=== PATIENT | male | born 1965 | race Caucasian/White ===

== ENCOUNTER 2017-08-18 13:03 | Emergency (ER) | payer MEDICAID, MEDICARE, OTHER ==
[~2017-08-18] VITALS: Ht 180.3 cm; Wt 86.2 kg
[2017-08-18 13:16] VITALS: BP 100/62
[2017-08-18] MEDS ORDERED: BENADRYL25 MG ORAL (13:24)
[2017-08-18] MEDS ORDERED: BACTRIM DS TAB1 EAC1 ORAL (13:24)
[2017-08-18] MEDS ORDERED: CEPHALEXIN500 MG ORAL (13:24)
[2017-08-18 13:34] VITALS: BP 104/61
--- NOTE | 2017-08-18 22:12 | Emergency Room Report ---
History of Present Illness General Chief Complaint: General Complaint Source: Patient Present Illness HPI The patient is a 52-year-old male with a history of fibromyalgia presenting for possible infection of legs. He states that he has been scratching the outside of his legs for the past week and has removed the skin. He is now noticing redness around these areas. He denies any known reason for the itching. He denies any swelling to the area. He denies any injury. Denies pain at this time. He denies any fever or chills Allergies: Coded Allergies: No Known Allergies (Unverified , 08/18/17) Patient History Past Medical History: see triage record Pertinent Family History: none Reviewed Nursing Documentation: PMH: Agreed, PSxH: Agreed Nursing Documentation-PMH Past Medical History: No History, Except For Hx Pacemaker: No - FIBROMYAGIA Review of Systems All Other Systems: negative except mentioned in HPI Physical Exam Vital Signs Date Time Temp Pulse Resp B/P (MAP) Pulse Ox O2 Delivery O2 Flow Rate FiO2 08/18/17 13:10 97.9 85 20 100/62 96 Room Air Sp02 EP Interpretation: reviewed, normal General Appearance: no apparent distress, alert, GCS 15, non-toxic Head: normocephalic, atraumatic Eyes: bilateral eye normal inspection, bilateral eye PERRL Musculoskeletal: back normal, gait/station normal, normal range of motion, no calf tenderness Neurologic: alert, oriented x3, responsive, motor strength/tone normal, sensory intact, speech normal Psychiatric: judgement/insight normal, memory normal, mood/affect normal, no suicidal/homicidal ideation Skin: rash - bilat lateral ankles have abrasion with surrounding erythema Lymphatic: no adenopathy Medical Decision Making PA Attestation Dr. Roldan is my supervising physician. Patient management was discussed with my supervising physician Diagnostic Impression: Primary Impression: Cellulitis Qualified Codes: L03.119 - Cellulitis of unspecified part of limb ER Course The patient is a 52-year-old male with a history of fibromyalgia presenting for possible infection of legs Differential diagnoses considered but not limited to: Cellulitis, abscess, abrasion, among others Physical exam: Bilateral lower legs have abrasion to the lateral malleoli as well as surrounding erythema. There is tenderness to palpation. Skin is hot to the touch. No edema The areas are cleaned and new dressing is applied. Patient was told to stop itching. He is given prescription for Benadryl as well as Keflex and Bactrim. ER precautions given Last Vital Signs Date Time Temp Pulse Resp B/P (MAP) Pulse Ox O2 Delivery O2 Flow Rate FiO2 08/18/17 13:34 81 16 104/61 99 Room Air 08/18/17 13:16 97.9 Status: improved Disposition: HOME, SELF-CARE Condition: Improved Scripts Trimethoprim/Sulfamethoxazole 160/800* (BACTRIM DS TABLET*) 1 Each Tablet 1 TAB ORAL DAILY, #14 TAB Prov: KAITLYN RODRIGUEZ P.A. 08/18/17 Cephalexin* (KEFLEX*) 500 Mg Capsule 500 MG ORAL EVERY 12 HOURS, #14 CAP 0 Refills Prov: DUCANKAITLYN P.A. 08/18/17 Diphenhydramine Hcl* (BENADRYL*) 25 Mg Capsule 25 MG ORAL Q6H Y for Itching, #20 CAP Prov: KAITLYN RODRIGUEZ P.A. 08/18/17 Referrals: [facility],REFERRING (PCP) Patient Instructions: Cellulitis Additional Instructions: I discussed my findings with the patient. All questions and concerns have been answered. Treatment and medication compliance have been addressed. I advised the patient that they need to follow up with PMD in 3-5 days. Return to ED if symptoms worsen, new symptoms arise, or if needed for any reason. Patient verbalized understanding of discharge instructions. KAITLYN RODRIGUEZ Aug 18, 2017 22:12
== END 2017-08-18 13:34 | disposition home or self-care (01) ==
LOC: EMR 13:20
DX: L03.116 Cellulitis of left lower limb (principal); L03.115 Cellulitis of right lower limb; M79.7 Fibromyalgia
CPT/HCPCS: 99284

== ENCOUNTER 2019-03-13 17:13 | Inpatient (IN) | payer MEDICARE ==
[~2019-03-13] VITALS: Ht 182.9 cm; Wt 81.6 kg
[~2019-03-13 17:13] MED LIST: BACTRIM DS TAB1 EAC1 ORAL; BENADRYL25 MG ORAL; CEPHALEXIN500 MG ORAL
[2019-03-13 17:40] VITALS: BP 133/88
--- NOTE | 2019-03-13 17:43 | NUR ---
ED Nurse Note: Patient presents to ER due to right elbow swelling, pain, tenderness and redness x 3 days. Patient states he fell due to dizziness and started having symptoms. Patient also having non-healing wound over the RLE with redness, scabs. Open wound with redness on the left ankle, lateral side.
[2019-03-13] MEDS ORDERED: Vancomycin 1 GM in NS 275 ML IVPB ONE (18:00)
--- NOTE | 2019-03-13 18:00 | NUR ---
ED Nurse Note: x-ray at bedside.
--- NOTE | 2019-03-13 18:13 | Emergency Room Report ---
History of Present Illness General Chief Complaint: Multiple Trauma/Fall Source: Patient, Medical Record Present Illness HPI Patient presents emergency department today complaint right lower extremity pain and swelling and right elbow pain and swelling. Patient states that he is allergic to dust mites he is been scratching at his right lower extremity fairly aggressively as result this area appears to be infected. It appears to have crusting erythema and edema. In addition he states that he fell on his right elbow his right elbow appears erythematous swollen and warm. There is also an area of scab formation which is consistent with a nidus for infection. Patient denies any fever nausea vomiting diarrhea chills. No other complaints were noted. Symptoms noted to be moderate to severe. No other modifying factors. No other associated signs and symptoms. No other complaints were noted. Allergies: Coded Allergies: No Known Allergies (Unverified , 08/18/17) Patient History Past Medical History: psych hx - Depression anxiety Past Surgical History: none Social History: Denies: smoking, alcohol use, drug use Reviewed Nursing Documentation: PMH: Agreed; PSxH: Agreed Nursing Documentation-PMH Past Medical History: No History, Except For Hx Pacemaker: No - FIBROMYAGIA History Of Psychiatric Problem: Yes - depression, anxiety Review of Systems All Other Systems: negative except mentioned in HPI Physical Exam Vital Signs Date Time Temp Pulse Resp B/P (MAP) Pulse Ox O2 Delivery O2 Flow Rate FiO2 03/13/19 17:25 98.8 88 16 133/88 (103) 95 Room Air Sp02 EP Interpretation: reviewed, normal General Appearance: normal inspection, well appearing, no apparent distress, alert Head: atraumatic Eyes: bilateral eye normal inspection ENT: normal ENT inspection, hearing grossly normal, normal voice Neck: normal inspection, full range of motion, supple, no bony tend Respiratory: normal inspection, lungs clear, normal breath sounds, no respiratory distress, no retraction, no wheezing Cardiovascular #1: regular rate, rhythm, no edema Gastrointestinal: normal inspection, normal bowel sounds, non tender, soft, no guarding, no hernia Genitourinary: no CVA tenderness Musculoskeletal: back normal, normal range of motion, swelling - Right lower extremity erythema consistent with cellulitis, right elbow tender erythema consistent with cellulitis Neurologic: normal inspection, alert, responsive, speech normal Psychiatric: normal inspection, judgement/insight normal, mood/affect normal Medical Decision Making Diagnostic Impression: Primary Impression: Cellulitis ER Course Patient presents emergency department today complaining of right elbow pain redness swelling and right lower extremity pain and swelling. Differential diagnosis includes cellulitis, abscess, fracture just name a few. Given the severity of the patient's presentation I felt this is a highly complex patient. This patient required extensive workup. Patient laboratory work-up shows an elevated white blood cell count this is concerning as patient likely has cellulitis. Patient was started on vancomycin. X-rays of patient's right elbow did not show any evidence of fracture. Case was discussed with Dr. Valencia. Patient stable for transfer and will be transferred to [facility] for further management. Labs Test 03/13/19 18:00 White Blood Count 12.1 K/UL (4.8-10.8) Red Blood Count 4.36 M/UL (4.70-6.10) Hemoglobin 13.3 G/DL (14.2-18.0) Hematocrit 37.2 % (42.0-52.0) Mean Corpuscular Volume 85 FL (80-99) Mean Corpuscular Hemoglobin 30.4 PG (27.0-31.0) Mean Corpuscular Hemoglobin Concent 35.7 G/DL (32.0-36.0) Red Cell Distribution Width 10.5 % (11.6-14.8) Platelet Count 230 K/UL (150-450) Mean Platelet Volume 6.2 FL (6.5-10.1) Neutrophils (%) (Auto) 76.5 % (45.0-75.0) Lymphocytes (%) (Auto) 10.3 % (20.0-45.0) Monocytes (%) (Auto) 8.9 % (1.0-10.0) Eosinophils (%) (Auto) 2.8 % (0.0-3.0) Basophils (%) (Auto) 1.5 % (0.0-2.0) Sodium Level 138 MMOL/L (136-145) Potassium Level 3.9 MMOL/L (3.5-5.1) Chloride Level 104 MMOL/L (98-107) Carbon Dioxide Level 27 MMOL/L (21-32) Anion Gap 8 mmol/L (5-15) Blood Urea Nitrogen 17 mg/dL (7-18) Creatinine 1.0 MG/DL (0.55-1.30) Estimat Glomerular Filtration Rate > 60 mL/min (>60) Glucose Level 109 MG/DL (74-106) Calcium Level 8.7 MG/DL (8.5-10.1) Total Bilirubin 0.5 MG/DL (0.2-1.0) Aspartate Amino Transf (AST/SGOT) 14 U/L (15-37) Alanine Aminotransferase (ALT/SGPT) 13 U/L (12-78) Alkaline Phosphatase 77 U/L (46-116) Total Protein 6.8 G/DL (6.4-8.2) Albumin 3.3 G/DL (3.4-5.0) Globulin 3.5 g/dL Albumin/Globulin Ratio 0.9 (1.0-2.7) Other X-Ray Diagnostic Results Other X-Ray Diagnostic Results : X-Ray ordered: right elbow # of Views/Limited Vs Complete: 3 View Indication: Pain EP Interpretation: Yes Interpretation: no dislocation, no soft tissue swelling, no fractures Impression: No acute disease Electronically Signed by: Electronically signed by Mgiuel Cooper MD Last Vital Signs Date Time Temp Pulse Resp B/P (MAP) Pulse Ox O2 Delivery O2 Flow Rate FiO2 03/13/19 17:25 98.8 88 16 133/88 (103) 95 Room Air Status: improved Disposition: XFER SHT-TRM HOSP Condition: Serious Miguel Cooper MD Mar 13, 2019 18:13
[2019-03-13 18:31] LABS: BASOPHILS % (AUTO) 1.5 % (0.0-2.0); EOSINOPHILS % (AUTO) 2.8 % (0.0-3.0); HEMATOCRIT 37.2 % (42.0-52.0); HEMOGLOBIN 13.3 G/DL (14.2-18.0); LYMPHOCYTES % (AUTO) 10.3 % (20.0-45.0); MEAN CORPUSCULAR VOLUME 85 FL (80-99); MONOCYTES % (AUTO) 8.9 % (1.0-10.0); NEUTROPHILS % (AUTO) 76.5 % (45.0-75.0); PLATELET COUNT 230 K/UL (150-450); RED BLOOD COUNT 4.36 M/UL (4.70-6.10); RED CELL DISTRIBUTION WIDTH 10.5 % (11.6-14.8); WHITE BLOOD COUNT 12.1 K/UL (4.8-10.8)
[2019-03-13 18:39] LABS: ANION GAP 8 mmol/L (5-15); BLOOD UREA NITROGEN 17 mg/dL (7-18); CALCIUM 8.7 MG/DL (8.5-10.1); CARBON DIOXIDE 27 MMOL/L (21-32); CHLORIDE 104 MMOL/L (98-107); POTASSIUM 3.9 MMOL/L (3.5-5.1); SODIUM 138 MMOL/L (136-145)
[2019-03-13 18:44] LABS: ALANINE AMINOTRANSFERASE 13 U/L (12-78); ALBUMIN 3.3 G/DL (3.4-5.0); ALBUMIN/GLOBULIN RATIO 0.9 (1.0-2.7); ALKALINE PHOSPHATASE 77 U/L (46-116); ASPARTATE AMINO TRANSFERASE 14 U/L (15-37); BILIRUBIN,TOTAL 0.5 MG/DL (0.2-1.0)
--- NOTE | 2019-03-13 18:57 | NUR ---
HAND-OFF: Report given to JOS Landers. no order to carry at this moment. Vancomycin running.
--- NOTE | 2019-03-13 18:59 | NUR ---
ED Nurse Note: Report was received from JOS Scott. Pt is in bed, VSS
--- NOTE | 2019-03-13 18:59 | NUR ---
Note winsome in EDM - 03/13/19 at 1914 by BAM ED Nurse Note: report was received by JOS Scott. pt was picked up by ambulance, currently on her way to [facility] to have CT done. Pt will be returning back after CT is done.
[2019-03-13] MEDS ORDERED: Morphine Sulfate 4mg/ml Inj (IV USE ONLY) ONE (19:37)
[2019-03-13] MEDS ORDERED: Morphine Sulfate 4mg/ml Inj (IV USE ONLY) IVP ONE (19:45)
[2019-03-13 19:52] VITALS: BP 130/84
--- NOTE | 2019-03-13 20:45 | NUR ---
ED Nurse Note: pt in bed resting with eyes closed. VSS
[2019-03-13 21:38] VITALS: BP 128/80
--- NOTE | 2019-03-13 22:22 | NUR ---
ED Nurse Note: pt was brought up to [facility] rm [id number] via neela. pt VSS.report given to JOS Greer
[2019-03-13 22:50] VITALS: BP 124/68
--- NOTE | 2019-03-13 22:50 | NUR ---
NURSE NOTES: PATIENT IN BED, AOX4. IV IN PLACE, PATENT. PATIENT IN NO DISTRESS. IV IN PLACE, PATENT. REVIEWED PATIENT'S BELONGINGS, PATIENT HAS NO YOUSSEF OR PHONE, ONLY ID AND WALLET, PATIENT REFUSED TO HAVE IT PUT IN THE SAFE, PATIENT SIGNED BELONGINGS LIST. SKIN ASSESSMENT DONE, PATIENT NOTED TO HAVE RIGHT ELBOW REDNESS AND SWELLING WITH OPEN WOUND WITH SCANT DRAINAGE, ALSO PATIENT NOTED TO HAVE GENERALIZED SCABS ON BODY AND OPEN WOUND ON RIGHT LEG AND LEFT ANKLE. BED IN LOWEST POSITION, BED ALARM ON, CALL LIGHT WITHIN REACH, WILL CONTINUE TO MONITOR.
[2019-03-13] MEDS ORDERED: ATARAX25 MG ORAL (22:59)
[2019-03-13] MEDS ORDERED: RISPERDAL2 MG ORAL (22:59)
[2019-03-13] MEDS ORDERED: BUPROPION XL300 MG ORAL (22:59)
[2019-03-13] MEDS ORDERED: BACLOFEN10 MG ORAL (22:59)
[2019-03-13] MEDS ORDERED: CELEXA20 MG ORAL (22:59)
[2019-03-13] MEDS ORDERED: LYRICA75 M1 ORAL (22:59)
[2019-03-13] MEDS: Enoxaparin 40mg Inj SUBQ SCH (23:33)
[2019-03-14] MEDS: Morphine Sulfate 2mg/ml Inj(IV/IM USE ONLY) IVP PRN ×3 (01:43→19:37)
[2019-03-14 04:23] VITALS: BP 108/67
[2019-03-14] MEDS: Vancomycin 1.25gm Premix q24h IVPB SCH ×2 (05:27→17:10)
--- NOTE | 2019-03-14 05:38 | NUR ---
NURSE NOTES: Patient in bed, in no apparent distress, v/s stable.
[2019-03-14 06:31] LABS: EOSINOPHILS % (AUTO) 4.2 % (0.0-3.0); HEMOGLOBIN 12.3 G/DL (14.2-18.0); MEAN CORPUSCULAR VOLUME 89 FL (80-99); MONOCYTES % (AUTO) 9.8 % (1.0-10.0); NEUTROPHILS % (AUTO) 64.9 % (45.0-75.0); PLATELET COUNT 220 K/UL (150-450); RED BLOOD COUNT 4.04 M/UL (4.70-6.10); RED CELL DISTRIBUTION WIDTH 11.3 % (11.6-14.8); WHITE BLOOD COUNT 9.3 K/UL (4.8-10.8)
[2019-03-14 06:53] LABS: ANION GAP 5 mmol/L (5-15); BLOOD UREA NITROGEN 20 mg/dL (7-18); CALCIUM 8.5 MG/DL (8.5-10.1); CARBON DIOXIDE 29 MMOL/L (21-32); CHLORIDE 108 MMOL/L (98-107); CREATININE 0.9 MG/DL (0.55-1.30); POTASSIUM 3.7 MMOL/L (3.5-5.1); SODIUM 142 MMOL/L (136-145)
--- NOTE | 2019-03-14 07:19 | NUR ---
HAND-OFF: Report given to HILARIO KEYES RN.
--- NOTE | 2019-03-14 07:41 | NUR ---
nurse notes received patient in bed, awake, alert, oriented x4, no sign of distress, IVF patent and infusing well, on fall aspiration precaution observed, plan of care explained to patient verbalized understanding, 4P's in progress call light w/n reach, will continue to monitor patient condition jairo kene
[2019-03-14 08:00] VITALS: BP 114/77
[2019-03-14] MEDS: Lyrica 50mg cap ORAL SCH ×3 (08:04→17:01)
[2019-03-14] MEDS: Citalopram Hydrobromide 10mg Tab ORAL SCH (08:05)
--- NOTE | 2019-03-14 11:05 | NUR ---
*-* INSURANCE *-* ALL CLINICALS HAVE BEEN FAXED TO: [employer] [place]: MALIK P:[phone] F: [phone] REF# [id number]
--- NOTE | 2019-03-14 11:16 | Diagnostic Imaging Report ---
Indication: Right elbow pain Findings: 3 views of the right elbow were obtained. No acute fractures, malalignment, erosions or periostitis are identified. Soft tissue swelling noted posterior to the elbow. Impression: Negative for acute injury. Soft tissue swelling
[2019-03-14 12:08] VITALS: BP 98/58
[2019-03-14] MEDS ORDERED: BuPROPion XL 150mg tab ORAL SCH (15:00)
--- NOTE | 2019-03-14 15:11 | NUR ---
NURSE NOTES:WOUND CARE NOTES:Pt presented on admission with multiple wounds of unknown etiology. Pt noted to have dry scabbed wounds to base of R thumb. Dry scabs noted to L index finger and L 2nd finger.Pt stated wounds on both hands are itchy. Small pustule with surrounding erythema. Periwound is indurated and warm to touch. Site is tender when minimally palpated. Pt noted to have wound pricsila/medial and posterior R Tibia with mixed slough and dry crusts. Borders and surrounding areas are erythematous. No elevation in Skin temp noted. Small amt serous exudate noted. No odor noted. Pt stated wound is itchy and has been scratching skin but insisted wound was already present. Small full thickness ulcer noted to lateral /Distal L lower ext .Base of wound has 100% slough. Borders and periwound are erythematous. Small amt seropurulent exudate noted . No odor noted. Pt educated on proper hand hygiene . Encouraged to also use Hand engineer assistant and to avoid scratching wounds to prevent infection. Tx.plan: Cleanse wounds bilat lower ext with Saline. Apply Xeroform gauze over wounds. Cover wounds with ABD pads and wrap with Kerlix Daily and prn. Instruct pt on good hand hygiene. Elevate both lower ext with pillow.
[2019-03-14 16:10] VITALS: BP 109/71
--- NOTE | 2019-03-14 16:44 | Consultation ---
History of Present Illness General Reason for Hospitalization: Multiple Trauma/Fall Present Illness HPI This is a very pleasant 53-year-old male who presented to the emergency department at [facility] complaining of right lower extremity pain and swelling and right elbow pain and swelling. Patient states that he is allergic to dust mites he is been scratching at his right lower extremity fairly aggressively as result this area appears to be infected. It appears to have crusting erythema and edema. In addition he states that he fell on his right elbow his right elbow appears erythematous swollen and warm. There is also an area of scab formation which is consistent with a nidus for infection. Patient denies any fever nausea vomiting diarrhea chills. No other complaints were noted. Symptoms noted to be moderate to severe. No other modifying factors. No other associated signs and symptoms. No other complaints were noted. On admission surgery called to evaluate and assist with care. Patient seen, patient evaluated, chart reviewed. Allergies: Uncoded Allergies: dust mites (Allergy, Unknown, 03/13/19) Medication History Scheduled Baclofen* (Baclofen*), 20 MG ORAL THREE TIMES A DAY, (Reported) Bupropion Hcl* (Wellbutrin*), 450 MG ORAL DAILY, (Reported) Citalopram Hydrobromide* (Celexa*), 40 MG ORAL DAILY, (Reported) Hydroxyzine HCl (Hydroxyzine HCl), 25 MG ORAL DAILY, (Reported) Pregabalin* (Lyrica*), 300 MG ORAL DAILY, (Reported) Risperidone* (Risperdal*), 6 MG ORAL DAILY, (Reported) Discontinued Medications Cephalexin* (Keflex*), 500 MG ORAL EVERY 12 HOURS Discontinued Reason: Pt stopped taking med Diphenhydramine Hcl* (Benadryl*), 25 MG ORAL Q6H PRN for Itching Discontinued Reason: Pt stopped taking med Trimethoprim/Sulfamethoxazole 160/800* (Bactrim Ds Tablet*), 1 TAB ORAL DAILY Discontinued Reason: Pt stopped taking med Patient History History Provided By: Patient, Medical Record, PMD Healthcare decision maker SELF Resuscitation status Advanced Directive on File Past Medical/Surgical History Past Medical/Surgical History: (1) Cellulitis Review of Systems Review of Symptoms General ROS: no weight loss or fever Psychological ROS: no depression or mood changes, no memory loss Ophthalmic ROS: no visual changes or eye irritation ENT ROS: no nasal congestion, hearing loss, dizziness Allergy and Immunology ROS: no allergic symptoms or urticaria Hematological and Lymphatic ROS: no swollen glands, unusual bleeding or bruising Endocrine ROS: no polyuria, polydipsia, weight changes, temperature intolerance Respiratory ROS: no cough, shortness of breath, or wheezing Cardiovascular ROS: no chest pain or dyspnea on exertion Gastrointestinal ROS: denies abdominal pain, no bright red blood in stool. Musculoskeletal ROS: no myalgias or arthralgias Neurological ROS: no TIA or stroke symptoms Dermatological ROS: no new or changing skin lesions, rashes or pruritis Physical Exam Physical Exam General appearance: alert, cooperative, no distress, appears stated age Head: Normocephalic, without obvious abnormality, atraumatic Eyes: conjunctivae/corneas clear. PERRL, EOM's intact. Fundi benign Throat: Lips, mucosa, and tongue normal. Teeth and gums normal Neck: supple, symmetrical, trachea midline, no adenopathy, thyroid: not enlarged, symmetric, no tenderness/mass/nodules, no carotid bruit and no JVD Lungs: clear to auscultation bilaterally Heart: regular rate and rhythm, S1, S2 normal, no murmur, click, rub or gallop Abdomen: soft, non-tender. Bowel sounds normal. No masses, no organomegaly Extremities: extremities as below Pulses: 2+ and symmetric Skin: Skin color, texture, turgor normal. No rashes or lesions Neurologic: Grossly normal Last 24 Hour Vital Signs Date Time Temp Pulse Resp B/P (MAP) Pulse Ox O2 Delivery O2 Flow Rate FiO2 03/14/19 12:08 98.2 74 18 98/58 (71) 99 03/14/19 08:00 98.2 77 18 114/77 (89) 99 03/14/19 08:00 Room Air 03/14/19 04:23 98.1 75 18 108/67 (81) 97 03/14/19 02:13 98.1 03/14/19 00:00 Room Air 03/13/19 22:50 98.1 74 18 124/68 (86) 95 03/13/19 22:22 98.4 79 18 124/80 98 Room Air 03/13/19 21:38 98.6 87 17 128/80 97 Room Air 03/13/19 19:52 98.6 84 17 130/84 96 Room Air 03/13/19 17:40 98.8 88 16 133/88 95 Room Air 03/13/19 17:40 88 16 Room Air 03/13/19 17:25 98.8 88 16 133/88 (103) 95 Room Air Intake and Output 03/13/19 03/14/19 19:00 07:00 Intake Total 833.33 ml Balance 833.33 ml IV Total 833.33 ml # Voids 1 Laboratory Tests Test 03/13/19 18:00 03/14/19 05:20 White Blood Count 12.1 K/UL (4.8-10.8) H 9.3 K/UL (4.8-10.8) Red Blood Count 4.36 M/UL (4.70-6.10) L 4.04 M/UL (4.70-6.10) L Hemoglobin 13.3 G/DL (14.2-18.0) L 12.3 G/DL (14.2-18.0) L Hematocrit 37.2 % (42.0-52.0) L 36.0 % (42.0-52.0) L Mean Corpuscular Volume 85 FL (80-99) 89 FL (80-99) Mean Corpuscular Hemoglobin 30.4 PG (27.0-31.0) 30.4 PG (27.0-31.0) Mean Corpuscular Hemoglobin Concent 35.7 G/DL (32.0-36.0) 34.1 G/DL (32.0-36.0) Red Cell Distribution Width 10.5 % (11.6-14.8) L 11.3 % (11.6-14.8) L Platelet Count 230 K/UL (150-450) 220 K/UL (150-450) Mean Platelet Volume 6.2 FL (6.5-10.1) L 6.8 FL (6.5-10.1) Neutrophils (%) (Auto) 76.5 % (45.0-75.0) H 64.9 % (45.0-75.0) Lymphocytes (%) (Auto) 10.3 % (20.0-45.0) L 20.0 % (20.0-45.0) Monocytes (%) (Auto) 8.9 % (1.0-10.0) 9.8 % (1.0-10.0) Eosinophils (%) (Auto) 2.8 % (0.0-3.0) 4.2 % (0.0-3.0) H Basophils (%) (Auto) 1.5 % (0.0-2.0) 1.0 % (0.0-2.0) Sodium Level 138 MMOL/L (136-145) 142 MMOL/L (136-145) Potassium Level 3.9 MMOL/L (3.5-5.1) 3.7 MMOL/L (3.5-5.1) Chloride Level 104 MMOL/L (98-107) 108 MMOL/L (98-107) H Carbon Dioxide Level 27 MMOL/L (21-32) 29 MMOL/L (21-32) Anion Gap 8 mmol/L (5-15) 5 mmol/L (5-15) Blood Urea Nitrogen 17 mg/dL (7-18) 20 mg/dL (7-18) H Creatinine 1.0 MG/DL (0.55-1.30) 0.9 MG/DL (0.55-1.30) Estimat Glomerular Filtration Rate > 60 mL/min (>60) > 60 mL/min (>60) Glucose Level 109 MG/DL (74-106) H 122 MG/DL (74-106) H Calcium Level 8.7 MG/DL (8.5-10.1) 8.5 MG/DL (8.5-10.1) Total Bilirubin 0.5 MG/DL (0.2-1.0) Aspartate Amino Transf (AST/SGOT) 14 U/L (15-37) L Alanine Aminotransferase (ALT/SGPT) 13 U/L (12-78) Alkaline Phosphatase 77 U/L (46-116) Total Protein 6.8 G/DL (6.4-8.2) Albumin 3.3 G/DL (3.4-5.0) L Globulin 3.5 g/dL Albumin/Globulin Ratio 0.9 (1.0-2.7) L Height (Feet): 6 Height (Inches): 0.00 Weight (Pounds): 180 Medications Current Medications Medications (Trade) Dose Ordered Sig/Ashlee Route PRN Reason Start Time Stop Time Status Last Admin Dose Admin Acetaminophen (Tylenol) 650 mg Q4H PRN ORAL Mild Pain (Pain Scale 1-3) 03/13/19 23:00 04/12/19 22:59 Bupropion HCl (Wellbutrin XL) 450 mg DAILY ORAL 03/15/19 09:00 04/14/19 08:59 Citalopram Hydrobromide (celeXA) 40 mg DAILY ORAL 03/14/19 09:00 04/13/19 08:59 03/14/19 08:05 Dextrose (Dextrose 50%) 25 ml Q30M PRN IV Hypoglycemia 03/13/19 23:00 04/12/19 22:59 Dextrose (Dextrose 50%) 50 ml Q30M PRN IV Hypoglycemia 03/13/19 23:00 04/12/19 22:59 Enoxaparin Sodium (Lovenox) 40 mg Q24H SUBQ 03/14/19 00:00 04/13/19 00:00 03/13/19 23:33 Famotidine (Pepcid) 40 mg DAILY ORAL 03/14/19 09:00 04/13/19 08:59 03/14/19 08:05 Morphine Sulfate (Morphine Sulfate) 1 mg Q6H PRN IVP For Pain 03/13/19 23:15 03/20/19 23:14 03/14/19 08:04 Ondansetron HCl (Zofran) 4 mg Q6H PRN IVP Nausea & Vomiting 03/14/19 01:00 04/13/19 00:59 Pregabalin (Lyrica) 100 mg THREE TIMES A DAY ORAL 03/14/19 09:00 04/13/19 08:59 03/14/19 12:44 Risperidone (RisperDAL) 6 mg DAILY ORAL 03/14/19 09:00 04/13/19 08:59 03/14/19 08:04 Sodium Chloride 1,000 ml @ 75 mls/hr [id number] IV 03/13/19 23:55 04/12/19 23:54 03/14/19 13:47 Vancomycin HCl (Vanco rx to dose) 1 ea DAILY PRN MISC Per rx protocol 03/13/19 23:00 04/12/19 22:59 Vancomycin HCl/ Dextrose 275 ml @ 183.333 mls/hr Q12H IVPB 03/14/19 06:00 03/19/19 05:59 03/14/19 05:27 Assessment/Plan Problem List: (1) Cellulitis Assessment & Plan: Pt presented on admission with multiple wounds of unknown etiology. Pt noted to have dry scabbed wounds to base of R thumb. Dry scabs noted to L index finger and L 2nd finger.Pt stated wounds on both hands are itchy. Small pustule with surrounding erythema. Periwound is indurated and warm to touch. Site is tender when minimally palpated. Pt noted to have wound priscila/medial and posterior R Tibia with mixed slough and dry crusts. Borders and surrounding areas are erythematous. No elevation in Skin temp noted. Small amt serous exudate noted. No odor noted. Pt stated wound is itchy and has been scratching skin but insisted wound was already present. Small full thickness ulcer noted to lateral /Distal L lower ext .Base of wound has 100% slough. Borders and periwound are erythematous. Small amt seropurulent exudate noted . No odor noted. Pt educated on proper hand hygiene . Encouraged to also use Hand property field inspector and to avoid scratching wounds to prevent infection. Tx.plan: Cleanse wounds bilateral lower extremity with Saline daily. okay to shower with soap and water as well. Apply Xeroform gauze over wounds. Cover wounds with ABD pads and wrap with Kerlix Daily and prn. Instruct pt on good hand hygiene. Elevate both lower ext with pillow. Abx as per ID okay to ambulate will follow with recs thank you ICD Codes: L03.90 - Cellulitis, unspecified SNOMED: [id number] Bashir Champagne Mar 14, 2019 16:44
--- NOTE | 2019-03-14 19:12 | NUR ---
HAND-OFF: Report given to JOS ALDRIDGE resting comfortably in bed, v/s stable and afebrile leonila rn
--- NOTE | 2019-03-14 19:36 | Consultation ---
History of Present Illness General Date patient seen: Mar 14, 2019 Chief Complaint: Multiple Trauma/Fall Present Illness HPI 53 y/o M with hx of MDD/anxiety, fibromyalgia presented to ED on 03/13 with RLE pain and swelling and R elbow pain and swelling. Patient refers that his allergic to dust mites and has been scratching aggressively to his RLE. Patient has crusting erythema and edema. In addition he fell on his R elbow and appears erythematous swollen and warm. Denied f/c, n/v/d. Allergies: Uncoded Allergies: dust mites (Allergy, Unknown, 03/13/19) Medication History Scheduled Baclofen* (Baclofen*), 20 MG ORAL THREE TIMES A DAY, (Reported) Bupropion Hcl* (Wellbutrin*), 450 MG ORAL DAILY, (Reported) Citalopram Hydrobromide* (Celexa*), 40 MG ORAL DAILY, (Reported) Hydroxyzine HCl (Hydroxyzine HCl), 25 MG ORAL DAILY, (Reported) Pregabalin* (Lyrica*), 300 MG ORAL DAILY, (Reported) Risperidone* (Risperdal*), 6 MG ORAL DAILY, (Reported) Discontinued Medications Cephalexin* (Keflex*), 500 MG ORAL EVERY 12 HOURS Discontinued Reason: Pt stopped taking med Diphenhydramine Hcl* (Benadryl*), 25 MG ORAL Q6H PRN for Itching Discontinued Reason: Pt stopped taking med Trimethoprim/Sulfamethoxazole 160/800* (Bactrim Ds Tablet*), 1 TAB ORAL DAILY Discontinued Reason: Pt stopped taking med Patient History Healthcare decision maker SELF Resuscitation status Advanced Directive on File Patient History Narrative Pmhx: as above Shx: Denies: smoking, alcohol use, drug use Fhx: non contributory Review of Systems All Other Systems: negative except mentioned in HPI Physical Exam Physical Exam Narrative General appearance: alert, cooperative, no distress, appears stated age Head: Normocephalic, without obvious abnormality, atraumatic Eyes: conjunctivae/corneas clear. PERRL, EOM's intact. Fundi benign Throat: Lips, mucosa, and tongue normal. Teeth and gums normal Neck: supple, symmetrical, trachea midline, no adenopathy, thyroid: not enlarged, symmetric, no tenderness/mass/nodules, no carotid bruit and no JVD Lungs: clear to auscultation bilaterally Heart: regular rate and rhythm, S1, S2 normal, no murmur, click, rub or gallop Abdomen: soft, non-tender. Bowel sounds normal. No masses, no organomegaly Extremities: extremities as below Pulses: 2+ and symmetric Skin: Skin color, texture, turgor normal. No rashes or lesions Neurologic: Grossly normal Last 24 Hour Vital Signs Date Time Temp Pulse Resp B/P (MAP) Pulse Ox O2 Delivery O2 Flow Rate FiO2 03/14/19 16:10 98.1 65 17 109/71 (84) 99 03/14/19 12:08 98.2 74 18 98/58 (71) 99 03/14/19 08:00 98.2 77 18 114/77 (89) 99 03/14/19 08:00 Room Air 03/14/19 04:23 98.1 75 18 108/67 (81) 97 03/14/19 02:13 98.1 03/14/19 00:00 Room Air 03/13/19 22:50 98.1 74 18 124/68 (86) 95 03/13/19 22:22 98.4 79 18 124/80 98 Room Air 03/13/19 21:38 98.6 87 17 128/80 97 Room Air 03/13/19 19:52 98.6 84 17 130/84 96 Room Air Intake and Output 03/13/19 03/14/19 19:00 07:00 Intake Total 833.33 ml Balance 833.33 ml IV Total 833.33 ml # Voids 1 Laboratory Tests Test 03/14/19 05:20 White Blood Count 9.3 K/UL (4.8-10.8) Red Blood Count 4.04 M/UL (4.70-6.10) L Hemoglobin 12.3 G/DL (14.2-18.0) L Hematocrit 36.0 % (42.0-52.0) L Mean Corpuscular Volume 89 FL (80-99) Mean Corpuscular Hemoglobin 30.4 PG (27.0-31.0) Mean Corpuscular Hemoglobin Concent 34.1 G/DL (32.0-36.0) Red Cell Distribution Width 11.3 % (11.6-14.8) L Platelet Count 220 K/UL (150-450) Mean Platelet Volume 6.8 FL (6.5-10.1) Neutrophils (%) (Auto) 64.9 % (45.0-75.0) Lymphocytes (%) (Auto) 20.0 % (20.0-45.0) Monocytes (%) (Auto) 9.8 % (1.0-10.0) Eosinophils (%) (Auto) 4.2 % (0.0-3.0) H Basophils (%) (Auto) 1.0 % (0.0-2.0) Sodium Level 142 MMOL/L (136-145) Potassium Level 3.7 MMOL/L (3.5-5.1) Chloride Level 108 MMOL/L (98-107) H Carbon Dioxide Level 29 MMOL/L (21-32) Anion Gap 5 mmol/L (5-15) Blood Urea Nitrogen 20 mg/dL (7-18) H Creatinine 0.9 MG/DL (0.55-1.30) Estimat Glomerular Filtration Rate > 60 mL/min (>60) Glucose Level 122 MG/DL (74-106) H Calcium Level 8.5 MG/DL (8.5-10.1) Height (Feet): 6 Height (Inches): 0.00 Weight (Pounds): 180 Medications Current Medications Medications (Trade) Dose Ordered Sig/Ashlee Route PRN Reason Start Time Stop Time Status Last Admin Dose Admin Acetaminophen (Tylenol) 650 mg Q4H PRN ORAL Mild Pain (Pain Scale 1-3) 03/13/19 23:00 04/12/19 22:59 Bupropion HCl (Wellbutrin XL) 450 mg DAILY ORAL 03/15/19 09:00 04/14/19 08:59 Citalopram Hydrobromide (celeXA) 40 mg DAILY ORAL 03/14/19 09:00 04/13/19 08:59 03/14/19 08:05 Dextrose (Dextrose 50%) 25 ml Q30M PRN IV Hypoglycemia 03/13/19 23:00 04/12/19 22:59 Dextrose (Dextrose 50%) 50 ml Q30M PRN IV Hypoglycemia 03/13/19 23:00 04/12/19 22:59 Enoxaparin Sodium (Lovenox) 40 mg Q24H SUBQ 03/14/19 00:00 04/13/19 00:00 03/13/19 23:33 Famotidine (Pepcid) 40 mg DAILY ORAL 03/14/19 09:00 04/13/19 08:59 03/14/19 08:05 Morphine Sulfate (Morphine Sulfate) 1 mg Q6H PRN IVP For Pain 03/13/19 23:15 03/20/19 23:14 03/14/19 08:04 Ondansetron HCl (Zofran) 4 mg Q6H PRN IVP Nausea & Vomiting 03/14/19 01:00 04/13/19 00:59 Pregabalin (Lyrica) 100 mg THREE TIMES A DAY ORAL 03/14/19 09:00 04/13/19 08:59 03/14/19 17:01 Risperidone (RisperDAL) 6 mg DAILY ORAL 03/14/19 09:00 04/13/19 08:59 03/14/19 08:04 Sodium Chloride 1,000 ml @ 75 mls/hr [id number] IV 03/13/19 23:55 04/12/19 23:54 03/14/19 13:47 Vancomycin HCl (Vanco rx to dose) 1 ea DAILY PRN MISC Per rx protocol 03/13/19 23:00 04/12/19 22:59 Vancomycin HCl/ Dextrose 275 ml @ 183.333 mls/hr Q12H IVPB 03/14/19 06:00 03/19/19 05:59 03/14/19 17:10 Assessment/Plan Assessment/Plan: Abx: Vancomycin 03/13- Assessment: R elbow and RLE cellulitis Afebrile Leukocytosis, SP MDD/anxiety fibromyalgia Plan: -Continue empiric IV Vancomycin #1 -f/u cx -Monitor CBC/CMP, temperatures -wound care -Sx f/u Thank you for this consultation. Will continue to follow along with you. Discussed with JOS. Sunshine Steve M.D. Mar 14, 2019 19:36
--- NOTE | 2019-03-14 19:59 | NUR ---
NURSE NOTES: WOUND DRESSINGS WERE CHANGED IN THE PREVIOUS AM SHIFT.
[2019-03-14 20:00] VITALS: BP 115/74
--- NOTE | 2019-03-14 20:00 | NUR ---
NURSE NOTES: PATIENT IN BED, AOX4. IV IN PLACE, PATENT, RUNNING IV FLUIDS. PATIENT IN NO DISTRESS. WOUND DRESSING DRY AND INTACT. BED IN LOWEST POSITION, BED ALARM ON, CALL LIGHT WITHIN REACH, WILL CONTINUE TO MONITOR.
--- NOTE | 2019-03-14 20:12 | NUR ---
CASE MANAGEMENT: REVIEW 53Y/M PRESENTED TO ED FROM HOME CC: S/P FALL . PAIN RLE SI: CELLULITIS T 98.8 HR 88 RR 16 BP 133/88 SAT 95% ROOM AIR WBC 12.1 H/H 13.3/37.2 AST 14 IS: VANCO IV X1 MORPHINE IV X1 ZOFRAN IV X1 PATIENT ADMITTED TO MED/SURG UNIT 03/14/2019 DCP: PATIENT IS FROM HOME
--- NOTE | 2019-03-14 21:15 | History and Physical Report ---
DATE OF ADMISSION: 03/13/2019 REASON FOR ADMISSION: 1. Lower extremity cellulitis. 2. Right upper extremity cellulitis. HISTORY OF PRESENT ILLNESS: The patient is a 53-year-old gentleman presented to emergency room overnight for further evaluation and care complaining of right elbow and right lower extremity pain. The patient says that he has an allergy to dust mites and has been scratching himself and over the last week, his lower extremities have become ulcerated. The patient was feeling tired, weak, and fatigued. Denied any nausea, vomiting, or diarrhea. PAST MEDICAL HISTORY: 1. Depression. 2. Psychiatric disorder. PAST SURGICAL HISTORY: None. ALLERGIES: No known drug allergies. SOCIAL HISTORY: No tobacco, alcohol, or illicit drug use. REVIEW OF SYSTEMS: NEUROLOGIC: The patient denies headache, change in vision, syncope, or presyncopal episodes. CARDIOVASCULAR: No current chest pain, palpitations, or angina. PULMONARY: No difficulty breathing, productive cough, or sputum. GASTROINTESTINAL/GENITOURINARY: No change in urinary or bowel habits. No nausea, vomiting, or diarrhea. ENDOCRINOLOGY: No night sweats, fevers, or chills. PHYSICAL EXAMINATION: VITAL SIGNS: Blood pressure 98/50, respiratory rate 18, pulse 74, and temperature 98.2. GENERAL: The patient is awake, alert, and not in distress. HEENT: Extraocular muscles intact. No lymphadenopathy noted. Oropharyngeal mucosa is clear and dry. CARDIOVASCULAR: S1, S2. No rubs or gallops. PULMONARY: Clear to auscultation bilaterally. No rales, rhonchi or wheezes. ABDOMEN: Nondistended and nontender. EXTREMITY: Right lower extremity ankle ulcerated and pustule as well as his right upper extremity. LABORATORY DATA: Labs dated March 14, 2019, sodium 142, potassium 3.7, creatinine 0.9. White cell count 9.3, hemoglobin 12.3, platelet count 220,000. ASSESSMENT AND PLAN: 1. Lower extremity cellulitis and ulceration. IV antibiotics and General Surgery to evaluate. 2. Dehydration. We will continue IV fluids. 3. DVT prophylaxis with Lovenox subcutaneous. Burke Del Cid MD DR: MARY JOB#: [id number] CC:
[2019-03-14] MEDS: LORazepam Inj 2mg/ml 1ml IV PRN (22:12)
--- NOTE | 2019-03-14 22:16 | NUR ---
NURSE NOTES: PATIENT REQUESTED SOMETHING FOR ANXIETY. CALLED DR. MANCILLA AND RECEIVED ORDER FOR ATIVAN 1 MG IVP Q6HR PRN. ORDER CARRIED OUT.
[2019-03-15 00:04] VITALS: BP 115/71
[2019-03-15] MEDS: Enoxaparin 40mg Inj SUBQ SCH (00:40)
[2019-03-15 04:00] VITALS: BP 120/76
[2019-03-15] MEDS: Vancomycin 1.25gm Premix q24h IVPB SCH (05:55)
--- NOTE | 2019-03-15 06:20 | NUR ---
NURSE NOTES: PATIENT PULLED OUT IV LEF THAND 20 GAUGE, NEW IV ACCESS LEFT WRIST 24 GAUGE, PATENT.
--- NOTE | 2019-03-15 07:07 | NUR ---
HAND-OFF: Report given to HILARIO KEYES RN.
--- NOTE | 2019-03-15 07:20 | NUR ---
nurse notes received patient in bed, awake, alert, oriented x4, no sign of distress, IVF patent and infusing well, on fall aspiration precaution observed, both bilateral legs dressing clean dry and intact,plan of care explained to patient verbalized understanding, 4P's in progress call light w/n reach, will continue to monitor patient condition jairo keen
[2019-03-15 07:37] LABS: BASOPHILS % (AUTO) 1.6 % (0.0-2.0); EOSINOPHILS % (AUTO) 6.4 % (0.0-3.0); HEMATOCRIT 39.1 % (42.0-52.0); HEMOGLOBIN 13.3 G/DL (14.2-18.0); LYMPHOCYTES % (AUTO) 24.7 % (20.0-45.0); MEAN CORPUSCULAR VOLUME 89 FL (80-99); MONOCYTES % (AUTO) 8.9 % (1.0-10.0); NEUTROPHILS % (AUTO) 58.5 % (45.0-75.0); PLATELET COUNT 242 K/UL (150-450); RED BLOOD COUNT 4.38 M/UL (4.70-6.10); RED CELL DISTRIBUTION WIDTH 11.3 % (11.6-14.8); WHITE BLOOD COUNT 7.9 K/UL (4.8-10.8)
[2019-03-15 07:39] LABS: ANION GAP 4 mmol/L (5-15); BLOOD UREA NITROGEN 14 mg/dL (7-18); CALCIUM 8.6 MG/DL (8.5-10.1); CARBON DIOXIDE 29 MMOL/L (21-32); CHLORIDE 107 MMOL/L (98-107); POTASSIUM 3.9 MMOL/L (3.5-5.1); SODIUM 140 MMOL/L (136-145)
[2019-03-15 08:00] VITALS: BP_SYST 109; BP_SYST 121; BP_DIAS 72; BP_DIAS 78
[2019-03-15] MEDS: Citalopram Hydrobromide 10mg Tab ORAL SCH (08:10)
[2019-03-15] MEDS: Lyrica 50mg cap ORAL SCH ×2 (08:11→12:20)
[2019-03-15] MEDS ORDERED: BuPROPion XL 150mg tab ORAL SCH (09:00)
[2019-03-15] MEDS: LORazepam Inj 2mg/ml 1ml IV PRN (09:08)
[2019-03-15 11:50] VITALS: BP 110/79
--- NOTE | 2019-03-15 12:37 | Nephrology Progress Note ---
Assessment/Plan Assessment/Plan: A/P 1) RLE/RUE extremity cellulitis - appreciate gen surgery and ID/wound care - DC tomorr on po ABx 2) DVT prophylaxis- lovenox Subjective Date patient seen: Mar 15, 2019 Time patient seen: 12:35 ROS Limited/Unobtainable: No Allergies: Uncoded Allergies: dust mites (Allergy, Unknown, 03/13/19) Subjective Patient feeling better Objective Last 24 Hour Vital Signs Date Time Temp Pulse Resp B/P (MAP) Pulse Ox O2 Delivery O2 Flow Rate FiO2 03/15/19 11:50 98.1 72 18 110/79 (89) 96 03/15/19 08:00 97.9 64 18 109/72 (84) 96 03/15/19 08:00 Room Air 03/15/19 04:00 97.6 65 18 120/76 (91) 99 03/15/19 00:04 98.7 75 18 115/71 (86) 96 03/14/19 21:12 Room Air 03/14/19 20:07 98.1 03/14/19 20:00 98.7 69 18 115/74 (88) 97 03/14/19 16:10 98.1 65 17 109/71 (84) 99 Intake and Output 03/14/19 03/15/19 19:00 07:00 Intake Total 1841.67 ml 858.333 ml Output Total 1050 ml 1200 ml Balance 791.67 ml -341.667 ml Intake Oral 900 ml IV Total 941.67 ml 858.333 ml Output Urine Total 1050 ml 1200 ml # Voids 1 3 Laboratory Tests 03/15/19 05:44: White Blood Count 7.9, Red Blood Count 4.38L, Hemoglobin 13.3L, Hematocrit 39.1L , Mean Corpuscular Volume 89, Mean Corpuscular Hemoglobin 30.4, Mean Corpuscular Hemoglobin Concent 34.0, Red Cell Distribution Width 11.3L, Platelet Count 242, Mean Platelet Volume 6.7, Neutrophils (%) (Auto) 58.5, Lymphocytes (%) (Auto) 24.7, Monocytes (%) (Auto) 8.9, Eosinophils (%) (Auto) 6.4H, Basophils (%) (Auto) 1.6, Sodium Level 140, Potassium Level 3.9, Chloride Level 107, Carbon Dioxide Level 29, Anion Gap 4L, Blood Urea Nitrogen 14, Creatinine 1.0, Estimat Glomerular Filtration Rate > 60, Glucose Level 94, Calcium Level 8.6 Height (Feet): 6 Height (Inches): 0.00 Weight (Pounds): 180 General Appearance: no apparent distress, alert EENT: normal ENT inspection Neck: normal alignment, supple Cardiovascular: normal rate, regular rhythm Respiratory/Chest: lungs clear, normal breath sounds Abdomen: non tender Edema: no edema noted Arm (L), no edema noted Arm (R), no edema noted Leg (L), no edema noted Leg (R), no edema noted Pedal (L), no edema noted Pedal (R), no edema noted Generalized Burke Del Cid MD Mar 15, 2019 12:37
[2019-03-15] MEDS ORDERED: traMADol 50mg tab ORAL PRN (12:45)
--- NOTE | 2019-03-15 12:46 | Infectious Diseases Prog Note ---
Assessment/Plan Assessment/Plan Abx: Vancomycin 03/13- Assessment: R elbow and RLE cellulitis -wound cx p Afebrile Leukocytosis, SP MDD/anxiety fibromyalgia Plan: -Continue empiric IV Vancomycin #09/13-10 -upon discharge can be transition to PO bactrim and Keflex -f/u cx -Monitor CBC/CMP, temperatures -wound care -Sx f/u Thank you for this consultation. Will continue to follow along with you. Discussed with RN. Subjective Allergies: Uncoded Allergies: dust mites (Allergy, Unknown, 03/13/19) Subjective afebrile no leukcoytosis Objective Vital Signs Last 24 Hour Vital Signs Date Time Temp Pulse Resp B/P (MAP) Pulse Ox O2 Delivery O2 Flow Rate FiO2 03/15/19 11:50 98.1 72 18 110/79 (89) 96 03/15/19 08:00 97.9 64 18 109/72 (84) 96 03/15/19 08:00 Room Air 03/15/19 04:00 97.6 65 18 120/76 (91) 99 03/15/19 00:04 98.7 75 18 115/71 (86) 96 03/14/19 21:12 Room Air 03/14/19 20:07 98.1 03/14/19 20:00 98.7 69 18 115/74 (88) 97 03/14/19 16:10 98.1 65 17 109/71 (84) 99 Height (Feet): 6 Height (Inches): 0.00 Weight (Pounds): 180 Objective General appearance: alert, cooperative, no distress, appears stated age Head: Normocephalic, without obvious abnormality, atraumatic Eyes: conjunctivae/corneas clear. PERRL, EOM's intact. Fundi benign Throat: Lips, mucosa, and tongue normal. Teeth and gums normal Neck: supple, symmetrical, trachea midline, no adenopathy, thyroid: not enlarged, symmetric, no tenderness/mass/nodules, no carotid bruit and no JVD Lungs: clear to auscultation bilaterally Heart: regular rate and rhythm, S1, S2 normal, no murmur, click, rub or gallop Abdomen: soft, non-tender. Bowel sounds normal. No masses, no organomegaly Extremities: extremities as below Pulses: 2+ and symmetric Skin: Skin color, texture, turgor normal. No rashes or lesions Neurologic: Grossly normal Laboratory Tests Test 03/15/19 05:44 White Blood Count 7.9 K/UL (4.8-10.8) Red Blood Count 4.38 M/UL (4.70-6.10) L Hemoglobin 13.3 G/DL (14.2-18.0) L Hematocrit 39.1 % (42.0-52.0) L Mean Corpuscular Volume 89 FL (80-99) Mean Corpuscular Hemoglobin 30.4 PG (27.0-31.0) Mean Corpuscular Hemoglobin Concent 34.0 G/DL (32.0-36.0) Red Cell Distribution Width 11.3 % (11.6-14.8) L Platelet Count 242 K/UL (150-450) Mean Platelet Volume 6.7 FL (6.5-10.1) Neutrophils (%) (Auto) 58.5 % (45.0-75.0) Lymphocytes (%) (Auto) 24.7 % (20.0-45.0) Monocytes (%) (Auto) 8.9 % (1.0-10.0) Eosinophils (%) (Auto) 6.4 % (0.0-3.0) H Basophils (%) (Auto) 1.6 % (0.0-2.0) Sodium Level 140 MMOL/L (136-145) Potassium Level 3.9 MMOL/L (3.5-5.1) Chloride Level 107 MMOL/L (98-107) Carbon Dioxide Level 29 MMOL/L (21-32) Anion Gap 4 mmol/L (5-15) L Blood Urea Nitrogen 14 mg/dL (7-18) Creatinine 1.0 MG/DL (0.55-1.30) Estimat Glomerular Filtration Rate > 60 mL/min (>60) Glucose Level 94 MG/DL (74-106) Calcium Level 8.6 MG/DL (8.5-10.1) Current Medications Medications (Trade) Dose Ordered Sig/Ashlee Route PRN Reason Start Time Stop Time Status Last Admin Dose Admin Acetaminophen (Tylenol) 650 mg Q4H PRN ORAL Mild Pain (Pain Scale 1-3) 03/13/19 23:00 04/12/19 22:59 Bupropion HCl (Wellbutrin XL) 450 mg DAILY ORAL 03/15/19 09:00 04/14/19 08:59 03/15/19 08:11 Citalopram Hydrobromide (celeXA) 40 mg DAILY ORAL 03/14/19 09:00 04/13/19 08:59 03/15/19 08:10 Dextrose (Dextrose 50%) 25 ml Q30M PRN IV Hypoglycemia 03/13/19 23:00 04/12/19 22:59 Dextrose (Dextrose 50%) 50 ml Q30M PRN IV Hypoglycemia 03/13/19 23:00 04/12/19 22:59 Diphenhydramine HCl (Benadryl) 25 mg Q6H PRN ORAL Itching 03/15/19 12:45 04/14/19 12:44 Enoxaparin Sodium (Lovenox) 40 mg Q24H SUBQ 03/14/19 00:00 04/13/19 00:00 03/15/19 00:40 Famotidine (Pepcid) 40 mg DAILY ORAL 03/14/19 09:00 04/13/19 08:59 03/15/19 08:10 Ondansetron HCl (Zofran) 4 mg Q6H PRN IVP Nausea & Vomiting 03/14/19 01:00 04/13/19 00:59 Pregabalin (Lyrica) 100 mg THREE TIMES A DAY ORAL 03/14/19 09:00 04/13/19 08:59 03/15/19 12:20 Risperidone (RisperDAL) 6 mg DAILY ORAL 03/14/19 09:00 04/13/19 08:59 03/15/19 08:12 Tramadol HCl (Ultram) 50 mg Q6H PRN ORAL For Pain 03/15/19 12:45 03/22/19 12:44 UNV Vancomycin HCl (Vanco rx to dose) 1 ea DAILY PRN MISC Per rx protocol 03/13/19 23:00 04/12/19 22:59 Vancomycin HCl/ Dextrose 275 ml @ 183.333 mls/hr Q12H IVPB 03/14/19 06:00 03/19/19 05:59 03/15/19 05:55 Sunshine Steve M.D. Mar 15, 2019 12:46
--- NOTE | 2019-03-15 14:19 | NUR ---
Social Work This Sw received a consult due to homeless. This SW met with patient who explains he has a home he will discharge to from here, remains independent with ADLs, ambulation and planning to discharge today or tomorrow. Patient explains he will be evicted from his apartment shortly, requesting housing and long term information. This Sw provided list of long term and transitional housing options. No other needs or concerns present at this time.
[2019-03-15] MEDS ORDERED: 1/2 NS 1000ml IV ONE (14:38)
[2019-03-15 15:45] VITALS: BP 107/68
--- NOTE | 2019-03-15 15:52 | Discharge Instructions ---
Discharge Instructions Discharge Instructions Services at Discharge: day care Resume Normal Activity?: Yes Activity: light activity Follow Up Orders F/U with PCP 1 week per his insurance company For Congestive Heart Failure Reminder Report to your physician any weight gain of 5 pounds or more in one week. Burke Del Cid MD Mar 15, 2019 15:52
--- NOTE | 2019-03-15 16:46 | NUR ---
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
--- NOTE | 2019-03-15 17:19 | Surgery Progress Note ---
Surgery Progress Note Subjective Symptoms: improved, tolerating diet, passing flatus, pain decreased Objective Last 24 Hour Vital Signs Date Time Temp Pulse Resp B/P (MAP) Pulse Ox O2 Delivery O2 Flow Rate FiO2 03/15/19 15:45 97.4 73 18 107/68 (81) 95 03/15/19 11:50 98.1 72 18 110/79 (89) 96 03/15/19 08:00 97.9 64 18 109/72 (84) 96 03/15/19 08:00 Room Air 03/15/19 04:00 97.6 65 18 120/76 (91) 99 03/15/19 00:04 98.7 75 18 115/71 (86) 96 03/14/19 21:12 Room Air 03/14/19 20:07 98.1 03/14/19 20:00 98.7 69 18 115/74 (88) 97 I&O Intake and Output 03/14/19 03/15/19 19:00 07:00 Intake Total 1841.67 ml 858.333 ml Output Total 1050 ml 1200 ml Balance 791.67 ml -341.667 ml Intake Oral 900 ml IV Total 941.67 ml 858.333 ml Output Urine Total 1050 ml 1200 ml # Voids 1 3 Dressing: dry Wound: clean Cardiovascular: RSR Respiratory: clear Abdomen: soft, present bowel sounds, non-distended Extremities: other Laboratory Tests Test 03/15/19 05:44 White Blood Count 7.9 K/UL (4.8-10.8) Red Blood Count 4.38 M/UL (4.70-6.10) L Hemoglobin 13.3 G/DL (14.2-18.0) L Hematocrit 39.1 % (42.0-52.0) L Mean Corpuscular Volume 89 FL (80-99) Mean Corpuscular Hemoglobin 30.4 PG (27.0-31.0) Mean Corpuscular Hemoglobin Concent 34.0 G/DL (32.0-36.0) Red Cell Distribution Width 11.3 % (11.6-14.8) L Platelet Count 242 K/UL (150-450) Mean Platelet Volume 6.7 FL (6.5-10.1) Neutrophils (%) (Auto) 58.5 % (45.0-75.0) Lymphocytes (%) (Auto) 24.7 % (20.0-45.0) Monocytes (%) (Auto) 8.9 % (1.0-10.0) Eosinophils (%) (Auto) 6.4 % (0.0-3.0) H Basophils (%) (Auto) 1.6 % (0.0-2.0) Sodium Level 140 MMOL/L (136-145) Potassium Level 3.9 MMOL/L (3.5-5.1) Chloride Level 107 MMOL/L (98-107) Carbon Dioxide Level 29 MMOL/L (21-32) Anion Gap 4 mmol/L (5-15) L Blood Urea Nitrogen 14 mg/dL (7-18) Creatinine 1.0 MG/DL (0.55-1.30) Estimat Glomerular Filtration Rate > 60 mL/min (>60) Glucose Level 94 MG/DL (74-106) Calcium Level 8.6 MG/DL (8.5-10.1) Plan Problems: (1) Cellulitis Assessment & Plan: Pt presented on admission with multiple wounds of unknown etiology. Pt noted to have dry scabbed wounds to base of R thumb. Dry scabs noted to L index finger and L 2nd finger.Pt stated wounds on both hands are itchy. Small pustule with surrounding erythema. Periwound is indurated and warm to touch. Site is tender when minimally palpated. Pt noted to have wound priscila/medial and posterior R Tibia with mixed slough and dry crusts. Borders and surrounding areas are erythematous. No elevation in Skin temp noted. Small amt serous exudate noted. No odor noted. Pt stated wound is itchy and has been scratching skin but insisted wound was already present. Small full thickness ulcer noted to lateral /Distal L lower ext .Base of wound has 100% slough. Borders and periwound are erythematous. Small amt seropurulent exudate noted . No odor noted. Pt educated on proper hand hygiene . Encouraged to also use Hand proposition player and to avoid scratching wounds to prevent infection. Tx.plan: Cleanse wounds bilateral lower extremity with Saline daily. okay to shower with soap and water as well. Apply Xeroform gauze over wounds. Cover wounds with ABD pads and wrap with Kerlix Daily and prn. Instruct pt on good hand hygiene. Elevate both lower ext with pillow. Abx as per ID okay to ambulate okay to d/c follow above instructions upon d/c for care plan time of note does note represent when patient was seen and evaluated will follow with recs thank you Bashir Champagne Mar 15, 2019 17:19
--- NOTE | 2019-03-17 07:50 | Discharge Summary ---
Discharge Summary Discharge Summary _ DATE OF ADMISSION: 03/13/2019 DATE OF DISCHARGE: 03/15/2019 DISCHARGED BY: Dr. Burke Del Cid CONSULTANTS: Dr. Bashir Steve BRIEF HOSPITAL COURSE: Patient is a 53-year-old gentleman, who presented to the emergency room for evaluation of right elbow and right lower extremity pain. The patient stated he had allergy to dust mites and had been scratching over the last week. His lower extremities have become ulcerated. He was feeling tired, weak and fatigued. He denied any nausea, vomiting or diarrhea. He has medical history significant for depression. On evaluation at the ED, vitals stable. Blood work was elevated to 12. Hemoglobin 13 and hematocrit 38. Electrolytes were normal. X-ray of the right elbow showed soft tissue swelling. Negative for acute injury. Patient's insurance company was unable to arrange transfer in a timely manner. He was then admitted for further management. Infectious disease specialist and surgeon were consulted. He was started empirically on IV vancomycin. Patient was noted to have dry scabbed wounds to base of R thumb. Dry scabs noted to L index finger and L 2nd finger.Pt stated wounds on both hands are itchy. Small pustule with surrounding erythema. Periwound was indurated and warm to touch. Site tender when minimally palpated. Pt noted to have wound priscila/medial and posterior R Tibia with mixed slough and dry crusts. Borders and surrounding areas were erythematous. No elevation in skin temperature noted. Small amount of serous exudate noted. No odor noted. Pt stated wound was itchy and had been scratching skin but insisted wound was already present. Small full thickness ulcer noted to lateral /Distal L lower ext . Base of wound has 100% slough. Borders and periwound are erythematous. Small amount of seropurulent exudate noted . No odor noted. Pt was educated on proper hand hygiene . Encouraged to also use Hand communications field technician and to avoid scratching wounds to prevent infection. He was provided with local wound care. He was advised to elevate lower extremity with pillows. He was eventually discharged home. FINAL DIAGNOSES: Right elbow and right lower extremity cellulitis Anxiety/MDD Fibromyalgia DISPOSITION: Patient was discharged home. DISCHARGE MEDICATIONS: Refer to Discharge Medication List. DISCHARGE INSTRUCTIONS: Follow-up with PCP in a week. I have been assigned to complete a discharge summary on this account, I was not involved with the patient's management.--SHOSHANA Rust Jacqueline Robles NP Mar 17, 2019 07:50
== END 2019-03-15 16:45 | disposition home or self-care (01) | DRG 603 ==
LOC: EMR 17:46 → 4E 21:12 → EDBEDREQ 21:52
DX: L03.116 Cellulitis of left lower limb (principal); L97.829 Non-pressure chronic ulcer of other part of left lower leg with unspecified severity; L97.819 Non-pressure chronic ulcer of other part of right lower leg with unspecified severity; L03.115 Cellulitis of right lower limb; F41.8 Other specified anxiety disorders; M79.7 Fibromyalgia; Z91.09 Other allergy status, other than to drugs and biological substances
CPT/HCPCS: 36415; 80048; 80053; 85025; 96365; 96375; 99285; J2405